=== PATIENT | female | born 1970 | race Two or more races ===

== ENCOUNTER 2016-11-16 21:06 | Emergency (ER) | payer BC ==
[~2016-11-16] VITALS: Ht 154.9 cm; Wt 54.4 kg
[2016-11-16 21:17] VITALS: BP 112/66
--- NOTE | 2016-11-16 21:44 | PHYS DOC ---
Past Medical History Past Medical History: No Pertinent History Past Surgical History: No Surgical History Alcohol Use: None Drug Use: None Adult General Chief Complaint Chief Complaint: Congestion HPI HPI Patient is a 46 year old female presents to the emergency department stating that she's had a cough and congestion for the last 3 days. Chest is states that she is having chest pain and discomfort. She states that it's in the center of her chest. She states this chest discomfort is been going on for quite some time. 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 She does state that she has had a fever at night. She denies any other symptoms of nausea and vomiting. 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 Review of Systems Review of Systems Constitutional: Denies fever or chills [] Eyes: Denies change in visual acuity, redness, or eye pain [] HENT: Denies nasal congestion or sore throat [] Respiratory: cough denies shortness of breath [] Cardiovascular: No additional information not addressed in HPI [] GI: Denies abdominal pain, nausea, vomiting, bloody stools or diarrhea [] : Denies dysuria or hematuria [] Musculoskeletal: Denies back pain or joint pain [] Integument: Denies rash or skin lesions [] Neurologic: Denies headache, focal weakness or sensory changes [] Endocrine: Denies polyuria or polydipsia [] Allergies Allergies Allergies Coded Allergies Type Severity Reaction Last Updated Verified No Known Drug Allergies 11/16/16 No Physical Exam Physical Exam Constitutional: Well developed, well nourished, no acute distress, non-toxic appearance. [] HENT: Normocephalic, atraumatic, bilateral external ears normal, oropharynx moist, no oral exudates, nose normal. Tympanic membranes appear to be normal. No frontal or maxillary sinus tenderness noted no nasal drainage or discharge noted. Throat with no erythematous no drainage no exudate noted. No anterior cervical adenopathy noted. Eyes: PERRLA, EOMI, conjunctiva normal, no discharge. [] Neck: Normal range of motion, no tenderness, supple, no stridor. [] Cardiovascular:Heart rate regular rhythm, no murmur [] Lungs & Thorax: Bilateral breath sounds clear to auscultation [] Skin: Warm, dry, no erythema, no rash. [] Back: No tenderness Extremities: No tenderness, no cyanosis, no clubbing, ROM intact, no edema. [] Neurologic: Alert and oriented X 3, normal motor function, normal sensory function, no focal deficits noted. [] Psychologic: Affect normal, judgement normal, mood normal. [] Current Patient Data Vital Signs Vital Signs Date Time Temp Pulse Resp B/P (MAP) Pulse Ox O2 Delivery O2 Flow Rate FiO2 11/16/16 21:17 97.9 74 18 98 Room Air 97.9 EKG EKG EKG was completed with a heart rate of 71 sinus rhythm noted no STEMI noted per Dr. Mcwilliams however patient did have T-wave changes. [] Radiology/Procedures Radiology/Procedures [] Course & Med Decision Making Course & Med Decision Making Pertinent Labs and Imaging studies reviewed. (See chart for details) I suspect that most of the chest discomfort is musculoskeletal as the patient does strenuous work. Patient however will have a troponin obtained as well as an EKG and a chest x-ray. Troponin was 0. Patient was provided with information that the troponin was 0, chest x-ray was negative, EKG didn't show some abnormality. Recommended that the patient follow-up with her primary care physician in the be provided with a doctor's list. Patient will be treated for bronchitis and will be provided with prednisone steroids, antibiotics, inhaler, with recommendations for Tylenol or ibuprofen for pain and discomfort. Patient will be discharged home in stable condition. Signs symptoms to return back to emergency department as been provided. [] Dragon Disclaimer Dragon Disclaimer This electronic medical record was generated, in whole or in part, using a voice recognition dictation system. Departure Departure Impression: Primary Impression: Bronchitis Disposition: 01 HOME, SELF-CARE Condition: STABLE Referrals: NO PCP (PCP) Patient Instructions: Acute Bronchitis, [id number] Additional Instructions: Your chest x-ray was normal, urine EKG however was abnormal with T-wave changes. Troponin was 0. Medications as prescribed. Tylenol or ibuprofen for pain and discomfort. Follow-up with a primary care physician in the next week. Return back to emergency prior signs symptoms of become worse. Scripts Albuterol Sulfate (PROAIR HFA INHALER) 8.5 Gm Hfa.aer.ad 1 PUFF INH PRN Q6HRS Y for SHORTNESS OF BREATH, #1 INHALER 0 Refills Prov: MARIE BERNSTEIN APRN 11/16/16 Prednisone (PREDNISONE) 20 Mg Tablet 40 MG PO DAILY for 7 Days, #14 TAB Prov: MARIE BERNSTEIN APRN 11/16/16 Azithromycin (ZITHROMAX) 250 Mg Tablet 250 MG PO DAILY for ANTI-BIOTIC, #6 TAB 0 Refills Take 2 tablets today then 1 tablet daily until gone Prov: MARIE BERNSTEIN APRN 11/16/16 MARIE BERNSTEIN APRN Nov 16, 2016 21:44
[2016-11-16] MEDS ORDERED: PROAIR HFA8.5 GM INH (22:20)
[2016-11-16] MEDS ORDERED: PRED20TA PO (22:20)
[2016-11-16] MEDS ORDERED: AZIT250T PO (22:20)
--- NOTE | 2016-11-17 07:05 | EKG ---
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
--- NOTE | 2016-11-17 07:29 | RAD ---
CHEST PA LATERAL Clinical Indication: chest discomfort, cough Comparison: Chest radiograph dated 06/16/2010 Findings: Normal lung volume. No focal consolidations. Normal pulmonary vasculature. No pleural effusion or pneumothorax. The cardiomediastinal silhouette and great vessels are normal. No significant soft tissue abnormality. IMPRESSION: No acute cardiopulmonary process.
== END 2016-11-16 22:45 | disposition home or self-care (01) ==
LOC: ER 21:06
DX: J40 Bronchitis, not specified as acute or chronic (principal)
CPT/HCPCS: 36415; 71020; 84484; 93005; 99284-25

== ENCOUNTER 2019-08-20 15:04 | Emergency (ER) | payer BC ==
[~2019-08-20] VITALS: Ht 154.9 cm; Wt 58.0 kg
[~2019-08-20 15:04] MED LIST: ALBU2.5V8 INH; AZIT250T PO; PRED20TA PO
--- NOTE | 2019-08-20 15:45 | PHYS DOC ---
Past Medical History Past Medical History: No Pertinent History Past Surgical History: No Surgical History Smoking Status: Never Smoker Alcohol Use: None Drug Use: None General Adult EDM: Chief Complaint: HEADACHE HPI: HPI: Patient is a 49 year old female, accompanied by her daughter, who presents to the emergency department with complaints of daily headaches for the last 3 months. Patient states that she wakes up with a headache behind her eyes every morning. She denies any nausea, vomiting, vision changes, photosensitivity, or tingling with the headaches. She currently denies any headache. She denies any pain. Patient states that she has been dizzy when she stands up and if she looks at the floor today. She reports feeling weak all over. She denies any fever, abdominal pain, chest pain, palpitations, or difficulty speaking. Review of Systems: Review of Systems: Constitutional: Denies fever or chills. [] Eyes: Denies change in visual acuity. [] HENT: Denies nasal congestion or sore throat. [] Respiratory: Denies cough or shortness of breath. [] Cardiovascular: Denies chest pain or edema. [] GI: Denies abdominal pain, nausea, vomiting, bloody stools or diarrhea. [] : Denies dysuria. [] Musculoskeletal: Denies back pain or joint pain. [] Integument: Denies rash. [] Neurologic: Denies headache, focal weakness or sensory changes. [] Endocrine: Denies polyuria or polydipsia. [] Lymphatic: Denies swollen glands. [] Psychiatric: Denies depression or anxiety. [] Heart Score: Risk Factors: Risk Factors: DM, Current or recent (<one month) smoker, HTN, HLP, family history of CAD, obesity. Risk Scores: Score 0 - 3: 2.5% MACE over next 6 weeks - Discharge Home Score 4 - 6: 20.3% MACE over next 6 weeks - Admit for Clinical Observation Score 7 - 10: 72.7% MACE over next 6 weeks - Early Invasive Strategies Allergies: Allergies: Allergies Coded Allergies Type Severity Reaction Last Updated Verified No Known Drug Allergies 11/16/16 No Physical Exam: PE: Constitutional: Well developed, well nourished, no acute distress, non-toxic appearance. [] HENT: Normocephalic, atraumatic, bilateral external ears normal, nose normal. [] Eyes: PERRLA, EOMI, conjunctiva normal, no discharge. [] Neck: Normal range of motion, no stridor. [] Cardiovascular:Heart rate regular rhythm, no murmur [] Lungs & Thorax: Respirations even and unlabored, no retractions, no respiratory distress Abdomen: soft, no tenderness, no masses, no pulsatile masses. [] Skin: Warm, dry, no erythema, no rash. [] Extremities: No cyanosis, no clubbing, ROM intact, no edema. [] Neurologic: Alert and oriented X 3, normal motor function, normal sensory function, no focal deficits noted, strength 5/5 x4 extremities. [] Psychologic: Affect normal, judgement normal, mood normal. [] Current Patient Data: Vital Signs: Vital Signs Date Time Temp Pulse Resp B/P (MAP) Pulse Ox O2 Delivery O2 Flow Rate FiO2 08/20/19 15:25 98.7 68 12 110/58 (75) 99 Room Air 98.7 EKG: EKG: [] Radiology/Procedures: Radiology/Procedures: PROCEDURE: CT HEAD WO CONTRAST CT HEAD INDICATION: Frequent headaches for 3 months COMPARISON: None Available. Exposure: One or more of the following individualized dose reduction techniques were utilized for this examination: 1. Automated exposure control 2. Adjustment of the mA and/or kV according to patient size 3. Use of iterative reconstruction technique TECHNIQUE: 5 mm contiguous axial images were obtained from the skull base to the vertex in both bone and soft tissue algorithm. FINDINGS: No abnormal attenuation within the brain parenchyma. No evidence of acute intracranial hemorrhage. No extra-axial fluid collections. No mass effect or midline shift. Ventricular size is appropriate. Basal cisterns are patent. No fractures identified.Sutherland-white differentiation is preserved.Globes and orbits are within normal limits. Paranasal sinuses and mastoid air cells are clear. IMPRESSION: No acute intracranial findings. [] Course & Med Decision Making: Course & Med Decision Making Pertinent Labs and Imaging studies reviewed. (See chart for details) Orthostatic blood pressures were normal. VSS. CT head negative. CBC, CMP, and UA unremarkable. Pt encouraged to follow up with PCP for further evaluation of headaches. Return to the ER if symptoms worsen or fever develops. Pt and her daughter verbalized an understanding of home care, medications, follow-up, and return to ED instructions and were in agreement with the plan of care. [] Dragon Disclaimer: Dragmaria elena Disclaimer: This electronic medical record was generated, in whole or in part, using a voice recognition dictation system. Departure Departure Impression: Primary Impression: Headache Qualified Codes: R51 - Headache Disposition: HOME, SELF-CARE Condition: STABLE Referrals: NO PCP (PCP) Patient Instructions: General Headache Without Cause, [id number] Additional Instructions: Follow up with your primary care doctor for further evaluation of your headaches. Return to the ER if symptoms worsen or you develop a fever. RAFAELA JOSÉ PETROLEUM ANALYST Aug 20, 2019 15:45
[2019-08-20 15:50] LABS: BASO % 1 % (0-3); EOS % 1 % (0-3); HEMATOCRIT 37.5 % (36.0-47.0); HEMOGLOBIN 12.5 g/dL (12.0-15.5); LYMPH # 2.2 x10^3/uL (1.0-4.8); LYMPH % 25 % (24-48); MEAN CORPUSCULAR HEMOGLOBIN 30 pg (25-35); MEAN CORPUSCULAR HGB CONC 33 g/dL (31-37); MEAN CORPUSCULAR VOLUME 91 fL (79-100); MONO # 0.7 x10^3/uL (0.0-1.1); MONO % 8 % (0-9); NEUT # 5.7 x10^3/uL (1.8-7.7); NEUT % 65 % (31-73); PLATELET COUNT 259 x10^3/uL (140-400); RED BLOOD COUNT 4.13 x10^6/uL (3.50-5.40); RED CELL DISTRIBUTION WIDTH 13.2 % (11.5-14.5); WHITE BLOOD COUNT 8.7 x10^3/uL (4.0-11.0)
[2019-08-20 15:51] LABS: BASO # 0.1 x10^3/uL (0.0-0.2); EOS # 0.1 x10^3/uL (0.0-0.7)
[2019-08-20 15:53] VITALS: BP 96/68
[2019-08-20 15:57] LABS: CALCIUM 8.6 mg/dL (8.5-10.1); CREATININE 0.7 mg/dL (0.6-1.0); GFR 89.3; POTASSIUM 3.5 mmol/L (3.5-5.1)
[2019-08-20 16:03] LABS: ALBUMIN 3.1 g/dL (3.4-5.0); ALBUMIN/GLOBULIN RATIO 0.8 (1.0-1.7); TOTAL BILIRUBIN 0.5 mg/dL (0.2-1.0)
[2019-08-20 16:05] LABS: BILIRUBIN,URINE NEGATIVE (NEG); CLARITY,URINE CLEAR; COLOR,URINE YELLOW; NITRITE,URINE NEGATIVE (NEG); PH,URINE 7.5 (<5.0-8.0); PROTEIN,URINE NEGATIVE (NEG-TRACE)
[2019-08-20 16:17] LABS: AMORPHOUS SEDIMENT,UR PRESENT /HPF; BACTERIA,URINE FEW /HPF (0-FEW); RBC,URINE OCC /HPF (0-2); SQUAMOUS EPITHELIAL CELL,UR MOD /LPF
[2019-08-20 16:21] LABS: U PREG PATIENT NEGATIVE (NEG)
--- NOTE | 2019-08-20 16:45 | RAD ---
CT HEAD INDICATION: Frequent headaches for 3 months COMPARISON: None Available. Exposure: One or more of the following individualized dose reduction techniques were utilized for this examination: 1. Automated exposure control 2. Adjustment of the mA and/or kV according to patient size 3. Use of iterative reconstruction technique TECHNIQUE: 5 mm contiguous axial images were obtained from the skull base to the vertex in both bone and soft tissue algorithm. FINDINGS: No abnormal attenuation within the brain parenchyma. No evidence of acute intracranial hemorrhage. No extra-axial fluid collections. No mass effect or midline shift. Ventricular size is appropriate. Basal cisterns are patent. No fractures identified.Sutherland-white differentiation is preserved.Globes and orbits are within normal limits. Paranasal sinuses and mastoid air cells are clear. IMPRESSION: No acute intracranial findings. Electronically signed by: Nik Laurent MD (08/20/2019 4:42 PM) [id number]
== END 2019-08-20 17:25 | disposition home or self-care (01) ==
LOC: ER 15:04
DX: R51 Headache (principal); R42 Dizziness and giddiness
CPT/HCPCS: 36415; 70450; 80053; 81001; 81025; 85025; 87086; 99284